=== PATIENT | female | born 1985 | race Caucasian/White ===

== ENCOUNTER 2018-08-09 20:45 | Emergency (ER) | payer SELFPAY ==
[~2018-08-09 20:45] MED LIST: ISOVUE-370 76%-LOCM 1 ML ONE
[2018-08-09] MEDS ORDERED: Adacel (T-DAP) 0.5 ML SYRINGE ONE (21:07)
[2018-08-09] MEDS ORDERED: Ondansetron PF 4 MG/2 ML Vial ONE (21:31)
[2018-08-09 21:54] LABS: #Lymphocytes 0.5 thou/uL (1.20-3.40); #Monocytes 0.2 thou/uL (0.11-0.59); #Neutrophils 14.1 thou/uL (1.40-6.50); %Basophils 0.1 % (0.0-1.0); %Eosinophils 0.1 % (0.0-10.0); %Lymphocytes 3.7 % (21.0-51.0); %Monocytes 1.3 % (0.0-10.0); %Neutrophils 94.9 % (42.0-75.0); Hemoglobin 12.5 g/dL (12.0-16.0); Mean Corpuscular HGB CONC 33.7 g/dL (32.0-36.0); Mean Corpuscular Hemoglobin 31.4 pg (27.0-31.0); Mean Corpuscular Volume 93.1 fL (78.0-98.0); Mean Platelet Volume 9.2 fL (7.4-10.4); Platelet Count 201 thou/uL (130-400); RBC Distribution Width 12.3 % (11.5-14.5); Red Blood Cell (RBC) Count 3.97 mill/uL (4.20-5.40); White Blood Cell (WBC) Count 14.8 thou/uL (4.8-10.8)
[2018-08-09 22:10] LABS: BHCG - Serum Negative (NEGATIVE); Pregs Control Background? CLEAR/WHITE (CLR/WHITE); Pregs Control Bar Appear? YES (CONTROL BAR)
[2018-08-09 22:15] LABS: ALT (SGPT) 9 U/L (8-55); AST (SGOT) 12 U/L (5-34); Albumin 4.1 g/dL (3.5-5.0); Alkaline Phosphatase 63 U/L (40-150); Anion Gap 12 mmol/L (10-20); BUN (Urea Nitrogen) 10 mg/dL (7.0-18.7); Bilirubin, Total 0.6 mg/dL (0.2-1.2); Calc. Creatinine Clearance 0 mL/min (70-130); Calcium 8.7 mg/dL (7.8-10.44); Carbon Dioxide 22 mmol/L (22-29); Chloride 109 mmol/L (98-107); Estimated GFR-MDRD Greater than 90; Globulin 2.4 g/dL (2.4-3.5); Glucose 124 mg/dL (70-105); Lipase 24 U/L (8-78); Potassium 3.3 mmol/L (3.5-5.1); Protein, Total 6.5 g/dL (6.0-8.3); Sodium 140 mmol/L (136-145)
[2018-08-09 23:02] LABS: Bilirubin Negative (Negative); Blood, Urine Negative (Negative); Clarity CLEAR (Clear); Glucose, Urine (Dipstick) Negative (Negative); Leukocyte Negative (Negative); Nitrite Negative (Negative); Protein, Urine (Dipstick) Negative (Neg-Trace); pH, Urine 6.5 (5.0-9.0)
[2018-08-09 23:03] LABS: Specific Gravity, Urine 1.043 (1.002-1.036)
--- NOTE | 2018-08-09 23:16 | CT ---
CT ABDOMEN AND PELVIS 08/09/18 HISTORY: Diffuse abdominal pain. IV contrast was given. Oral contrast was not given. Contrast enhanced CT images of the abdomen and pelvis demonstrate the lung bases to be unremarkable. No evidence of free intraperitoneal air seen. The liver and spleen are unremarkable. The pancreas and gallbladder are unremarkable. Adrenal glands are unremarkable. There appears to be mid pole left renal cortical cyst present. No dilated loops of small bowel seen. A significant amount of fluid is seen in the colon, especially in the transverse colon with air fluid level. This may represent liquid stool. The uterus and ovaries are unremarkable. Incidentally noted, 3.3 mm renal calculus seen in the mid pole of the right kidney without evidence o f obstruction. IMPRESSION: Liquid stool is seen in the transverse colon. No other significant abnormality seen. A normal appendi x is visualized. No evidence of intra-abdominal abscess or free air seen. POS: [facility]
[2018-08-09] MEDS ORDERED: Ketorolac Tromethamine 30 MG/ML VIAL ONE (23:18)
--- NOTE | 2018-08-09 23:39 | RAD ---
AP VIEW CHEST: 08/09/18 HISTORY: Hypoxia. AP view chest is obtained. The lungs are well aerated. No evidence of active intrathoracic disease se en. No evidence of effusions, pneumonia or pneumothorax seen. IMPRESSION: Unremarkable AP view chest. POS: [facility]
== END 2018-08-10 00:08 | disposition home or self-care (01) ==
LOC: ERS 20:45
DX: K59.00 Constipation, unspecified (principal); F12.188 Cannabis abuse with other cannabis-induced disorder
CPT/HCPCS: 36415; 71045; 74177; 80053; 81003; 83690; 83735; 84703; 85025; 90715; 96374; 96375; J1885; J2405; Q9966